=== PATIENT | male | born 1955 | race Caucasian/White ===

== ENCOUNTER 2025-04-11 15:59 | Emergency (ER) | payer MEDICARE, SELFPAY ==
[2025-04-11 16:02] VITALS: BP 185/102
[2025-04-11 16:27] LABS: Hematocrit 40.6 % (39.0-52.0); Hemoglobin 14.1 g/dL (13.0-18.0); Mean Corp Hgb Conc. 34.7 g/dL (33.0-37.0); Mean Corpuscular Volume 95.1 fL (80.0-94.0); Nucleated Red Blood Cells % 0 % (-); Platelet Count 182 10^3/uL (130-400); Red Cell Dist. Width 14.8 % (11.5-14.5)
[2025-04-11 16:39] LABS: ALT (SGPT) 27 U/L (0-50); AST (SGOT) 34 U/L (17-59); Albumin 4.9 g/dl (3.5-5.0); Alkaline Phosphatase 58 U/L (38-126); Blood Urea Nitrogen 15 mg/dl (9-20); Calcium 9.4 mg/dl (8.4-10.2); Carbon Dioxide 25 mmol/L (22-30); Chloride 103 mmol/L (98-107); Glucose 95 mg/dl (70-99); Potassium 4.4 mmol/L (3.5-5.1); Sodium 135 mmol/L (135-145); Total Protein 8.3 g/dl (6.3-8.2); eGFR > 60.00
[2025-04-11 17:15] VITALS: BP 203/87
[2025-04-11 17:25] VITALS: BMI 21.7
--- NOTE | 2025-04-11 17:26 | ED.GENMED ---
History of Present Illness
General
Chief Complaint: Blood Pressure Problem
Source: patient
Exam Limitations: none
Time Seen by Provider: 04/11/25 17:07
History of Present Illness
History of Present Illness:
69yoM with no significant past medical history presenting with his sister for evaluation of elevated blood pressure. Patient has not seen a PCP in over 20 years. He was seen by his dentist a week ago for a dental extraction. His blood pressure
was checked while at the appointment which was elevated. He went for a second appointment today for dental x-rays and a cleaning. His blood pressure was again elevated around 190/110 and he was sent to the ED for evaluation. Patient is
asymptomatic at this time and denies any headache, visual changes, chest pain, shortness of breath. He has never been on blood pressure medications in the past. He does have a new patient appointment with a PCP scheduled for the beginning of
May.
Phy Exam
General Physical Exam
General Presentation: well appearing and no apparent distress
General Skin: warm and dry
General Habitus: normal
General Mental: alert
ENT Exam
ENT Exam: normocephalic
Cardiovascular Exam
Cardiovascular Exam: regular rate/rhythm, no edema and no murmur
Pulmonary Exam
Pulmonary Exam: lungs clear, no respiratory distress, no rales, no crackles, no rhonchi and no wheezing
Neurological Exam
Neurological Exam: alert
[place] Coma Scale
Eye Opening: Spontaneous
Verbal Response: Oriented
Motor Response: Obeys Commands
GCS Total Score: 15
Skin Exam
Skin Exam: normal color and warm/dry
Psychiatric Exam
Psychiatric Exam: normal mood/affect
Course
Orders/Labs/Results
Orders:
Orders
04/11/25 16:04
EKG [Electrocardiogram (*1)] Urgent
Reason for Study: Hypertension, Benign
04/11/25 16:05
EKG- Treatment ONCE
04/11/25 16:14
CBC/With Diff [Complete Blood Count/With Diff] Urgent
Comprehensive Metabolic Panel Urgent
04/11/25 17:45
Amlodipine [Norvasc] 5 mg PO ONCE ONE
Abnormal Lab Results
04/11/25
16:14
RBC 4.27 L 10^6/uL
(4.70-6.10)
MCV 95.1 H fL
(80.0-94.0)
MCH 33.0 H pg
(27.0-31.0)
RDW 14.8 H %
(11.5-14.5)
MPV 10.5 H fL
(7.4-10.4)
Monocytes % 10.5 H %
(1.7-9.3)
Creatinine 0.6 L mg/dL
(0.7-1.3)
Total Protein 8.3 H g/dl
(6.3-8.2)
04/11/25 16:14
04/11/25 16:14
Vital Signs
Initial and Last Documented VS:
Initial Vital Signs
Temp Pulse Resp BP Pulse Ox
98.2 F 64 16 185/102 98
04/11/25 16:02 04/11/25 16:02 04/11/25 16:02 04/11/25 16:02 04/11/25 16:02
Last Documented Vital Signs
Temp Pulse Resp BP Pulse Ox
98.2 F 63 18 182/85 99
04/11/25 16:02 04/11/25 17:59 04/11/25 17:58 04/11/25 17:59 04/11/25 17:58
MDM/Problems Addressed
Differential Diagnosis Includes:
69yoM here for asymptomatic hypertension after BP was elevated at a dental appt today. Denies CP/SOB. No headache. BP 185/102 on arrival. He is well appearing in no distress. Differential diagnosis includes: asymptomatic hypertension, hypertensive
urgency, hypertensive emergency
Workup initiated in triage. Renal function is normal. EKG shows NSR without ischemic changes. No evidence of end organ dysfunction. No indication for further testing. He was started on amlodipine and prescription for a 30 day supply provided. He was
advised to f/u with a PCP and strict ED return precautions reviewed. Patient and sister in agreement with plan and he was discharged in stable condition.
*Pulse Oximetry
SaO2: 98
Oxygen Mode of Delivery: Room air
Patient hypoxic: no (98%)
*EKG
Interpreted by ED Provider?: Yes
EKG Intrepretation Date: 04/11/25
Heart Rate: 62
Rate: normal
Rhythm: sinus
[place]: normal axis
QRS Pattern: normal QRS
Ischemia: no ischemia
*Critical Care Note
Total Time (30-74mins, 75-104mins- exclusive of procedures): Not Applicable
ED Attending Note
-
Portions of this chart may have been created with voice recognition software.� Occasional wrong word or��sound alike� substitutions may have occurred due to the inherent limitations of voice recognition software.
Discharge Plan
Departure
Patient Disposition: Home (Routine Discharge)
Date of Disposition: 04/11/25
Time of Disposition: 17:47
Patient with high blood pressure during this ER visit?: Yes
Discharge Problem:
Asymptomatic hypertension
Instructions: High Blood Pressure (DC), Amlodipine
Prescriptions:
New
amlodipine 5 mg tablet
5 mg PO DAILY Qty: 30 0RF
Activity Restrictions/Additional Instructions:
Take amlodipine as prescribed.
Please call tomorrow and discuss with your family doctor. Return to the ER with any worsening symptoms including severe headache, chest pain, or stroke-like symptoms.
Interventions
Interventions:
*Risk Screen - Suicide Last Done: 04/11/25 16:02
*General Assessment Last Done: 04/11/25 17:25
*Neglect/Abuse Screening Last Done: 04/11/25 16:02
*ED- Fall Risk Assessment Last Done: 04/11/25 17:25
*ED COVID-19 Vaccine History Last Done: 04/11/25 17:25
*Nursing Disposition Last Done: 04/11/25 18:05
ED- Cardiac Assessment Last Done: 04/11/25 17:25
ED- Neurological Assessment Last Done: 04/11/25 17:25
ED- Pulmonary Assessment Last Done: 04/11/25 17:25
Discharge Date and Time
Discharge Date/Time: 04/11/25 18:06
Print Language: HEBREW
[2025-04-11 17:27] VITALS: BP 198/96
[2025-04-11 17:30] VITALS: BP 198/93
[2025-04-11 17:58] VITALS: BP 182/85
[2025-04-11] MEDS: NORVASC 5 MG PO (17:59)
== END 2025-04-11 18:06 | disposition home or self-care (01) ==
LOC: EMR 15:59
PROVIDERS: EMERGENCY PHYSICIAN Emergency Medicine; FAMILY PHYSICIAN Internal Medicine
DX: I10 Essential (primary) hypertension (principal); Z98.818 Other dental procedure status
CPT/HCPCS: 99284; 80053; 85025; 93005